=== PATIENT | female | born 1990 | race Caucasian/White ===

== ENCOUNTER 2018-02-05 09:18 | Day surgery (SDC) | payer OTHER ==
[2018-02-05] MEDS ORDERED: LR 1,000 ML IV ×3 (09:30→11:30)
[2018-02-05 10:13] LABS: CONTROL LINE UCG INT CTR LINE PRESENT; URINE PREG TEST NEGATIVE (NEGATIVE)
[2018-02-05] MEDS ORDERED: ONDANSETRON 4MG/2ML VIAL (J2405) As Ordered (10:44)
[2018-02-05] MEDS ORDERED: MIDAZOLAM INJ 2 MG/2 ML VIAL (J2250) As Ordered (10:44)
[2018-02-05] MEDS ORDERED: dexameTHASONE 4 MG/ML 1ML VIAL (J1100) As Ordered (10:44)
[2018-02-05] MEDS ORDERED: fentaNYL 100 MCG/2 ML INJECTION (J3010) As Ordered (10:44)
[2018-02-05] MEDS ORDERED: PROPOFOL 200 MG/20 ML VIAL As Ordered ×2 (10:44)
[2018-02-05] MEDS: CIPRODEX OTIC SUSP 7.5ML As Ordered (10:46)
[2018-02-05] MEDS ORDERED: KETOROLAC 30 MG/ML VIAL (J1885) As Ordered (11:08)
[2018-02-05] MEDS ORDERED: NORCO, ANEXSIA 5/325MG TABLET (HYDROcodone/ACETAMINOPHEN) As Ordered (11:08)
[2018-02-05] MEDS: KETOROLAC 30 MG/ML VIAL (J1885) IV (11:20)
[2018-02-05] MEDS: NORCO, ANEXSIA 5/325MG TABLET (HYDROcodone/ACETAMINOPHEN) PO (11:20)
[2018-02-05] MEDS ORDERED: ONDANSETRON 4MG/2ML VIAL (J2405) IV (11:30)
== END 2018-02-05 12:13 | disposition home or self-care (01) ==
LOC: M SDC 09:18
DX: H69.83 Other specified disorders of Eustachian tube, bilateral (principal)
CPT/HCPCS: 69436